=== PATIENT | male | born 1935 | race Caucasian/White ===

== ENCOUNTER 2024-05-25 13:05 | Inpatient (IN) | payer MEDICARE, BC ==
[~2024-05-25] VITALS: Ht 182.9 cm; Wt 86.4 kg
[2024-05-25 14:23] LABS: BASOPHILS # (AUTO) 0.1 X10'3 (0-0.2); BASOPHILS % (AUTO) 0.5 % (0-1); EOSINOPHILS # (AUTO) 0.1 X10'3 (0-0.9); EOSINOPHILS % (AUTO) 0.6 % (0-6); HEMATOCRIT 50.4 % (42.0-52.0); HEMOGLOBIN 16.2 g/dl (14.0-17.9); LYMPHOCYTES # (AUTO) 2.3 X10'3 (1.1-4.8); LYMPHOCYTES % (AUTO) 15.1 % (21-51); MEAN CORPUSCULAR HEMOGLOBIN 31.6 PG (27.0-31.0); MEAN CORPUSCULAR HGB CONC 32.1 g/dL (33.0-36.5); MEAN CORPUSCULAR VOLUME 98.5 FL (78-98); MEAN PLATELET VOLUME 9.8 FL (7.4-10.4); MONOCYTES # (AUTO) 1.3 X10'3 (0-0.9); MONOCYTES % (AUTO) 8.4 % (2-12); NEUTROPHILS # (AUTO) 11.5 X10'3 (1.8-7.7); NEUTROPHILS % (AUTO) 75.4 % (42-75); PLATELET COUNT 191 X10'3 (140-440); RED BLOOD COUNT 5.11 X10'6 (4.70-6.10); RED CELL DISTRIBUTION WIDTH 13.8 % (11.5-14.5); WHITE BLOOD COUNT 15.3 X10'3 (4.5-11.0)
[2024-05-25 14:36] LABS: ALANINE AMINOTRANSFERASE 19 U/L (12-78); ALBUMIN 3.3 G/DL (3.4-5.0); ALBUMIN/GLOBULIN RATIO 0.7 (1.1-1.5); ALKALINE PHOSPHATASE 91 IU/L (46-116); ANION GAP 10 (8-16); ASPARTATE AMINO TRANSFERASE 17 U/L (10-37); BILIRUBIN,TOTAL 2.2 MG/DL (0.1-1.0); BLOOD UREA NITROGEN 17 MG/DL (7-18); CALCIUM 9.3 MG/DL (8.5-10.1); CHLORIDE 111 MMOL/L (99-107); CREATININE 0.85 MG/DL (0.60-1.10); GLUCOSE 105 MG/DL (70-104); POTASSIUM 4.1 MMOL/L (3.5-5.1); SODIUM 147 MMOL/L (135-145); TOTAL CARBON DIOXIDE 26.1 MMOL/L (24-32); eCRCL 65 ML/MIN; eGFR 85 ML/MIN
[2024-05-25] MEDS: normal saline 1000ML IV soln IVB ONE (14:40)
[2024-05-25 14:44] LABS: PRO BRAIN NATRIURETIC PEPTIDE 856 PG/ML (0-450)
[2024-05-25] MEDS ORDERED: RIVA10TA PO (17:44)
[2024-05-25] MEDS ORDERED: CHOL50004 PO (17:44)
[2024-05-25] MEDS ORDERED: VITA1TAB97 PO (17:44)
[2024-05-25] MEDS ORDERED: DUTA0.5C36 PO (17:44)
[2024-05-25] MEDS ORDERED: DILT90TA22 PO (17:44)
[2024-05-25] MEDS ORDERED: FLO0.4C PO (17:44)
[2024-05-25] MEDS ORDERED: QUET50TA24 PO (17:44)
[2024-05-25] MEDS ORDERED: LORA-268 PO (17:44)
[2024-05-25] MEDS ORDERED: SERT-432 PO (17:44)
[2024-05-25] MEDS ORDERED: FLO0.4C (17:44)
[2024-05-25] MEDS ORDERED: MECO10005 PO (17:44)
[2024-05-25 18:20] LABS: BILIRUBIN,URINE SMALL (Neg); CLARITY,URINE CLEAR (Clear); COLOR,URINE AMBER (Yellow); GLUCOSE, URINE NEGATIVE (Neg); KETONES,URINE NEGATIVE (Neg); LEUKOCYTE ESTERASE ,URINE NEGATIVE (Neg); NITRITES, URINE NEGATIVE (Neg); OCCULT BLOOD,URINE MODERATE (Neg); PROTEIN,URINE TRACE mg/dl (Neg)
[2024-05-25 18:23] LABS: UA COLLECTION TYPE STRAIGHT CATH
[2024-05-25 18:28] LABS: BACTERIA,URINE FEW /HPF (Neg); SQUAMOUS EPITHELIAL CELL,UR FEW /LPF (FEW)
[2024-05-25 18:29] LABS: RBC,URINE 20-50 /HPF (0-2); WBC,URINE 0-4 /HPF (0-4)
[2024-05-25 19:41] LABS: MAGNESIUM 2.4 MG/DL (1.5-2.4)
[2024-05-25] MEDS ORDERED: potassium Cl 40MEQ/1/2NS 520ml 520 ML IV PRN (20:20)
[2024-05-25] MEDS ORDERED: magnesium hydroxide 30ml (MOM) UD suspension PO PRN (20:20)
[2024-05-25] MEDS ORDERED: magnesium sulf-water 4G/100mL 100 ML IV PRN (20:20)
[2024-05-25] MEDS ORDERED: ondansetron/PF 4mg/2ml inj IV PRN (20:20)
[2024-05-25] MEDS ORDERED: acetaminophen 325mg tablet PO PRN (20:20)
[2024-05-25] MEDS ORDERED: mag hydrox/Alum hydrox/simeth 30ml oral suspension PO PRN (20:20)
[2024-05-25] MEDS: normal saline 1000ml 1,000 ML IV SCH (20:20)
[2024-05-25] MEDS ORDERED: magnesium Cl slow-release 64mg tablet PO PRN (20:20)
[2024-05-25] MEDS ORDERED: potassium Cl 20 mEq SR tablet PO PRN ×2 (20:20)
[2024-05-25] MEDS ORDERED: magnesium sulf-water 2g/50mL 50 ML IV PRN (20:20)
[2024-05-26] VITALS (9 sets, daily range): BP systolic 87–138; BP diastolic 52–88; PULSE 75–122; RESP 18–22; TEMP 96.6–97.5; O2SAT 94–97
[2024-05-26] MEDS: piperacillin/tazo 3.375gm/50ml 50 ML IV SCH (00:32)
[2024-05-26] MEDS: enoxaparin 40mg/0.4ml syringe SQ ONE (01:28)
[2024-05-26] MEDS: enoxaparin 30mg/0.3ml syringe SUBCUT ONE (01:28)
[2024-05-26] MEDS ORDERED: PERFLUTREN PROTEIN-A MICROSPHR (Optison) 0.22 MG/ML 3ML VIAL IV PRN (02:20)
[2024-05-26 05:46] LABS: BASOPHILS # (AUTO) 0.1 X10'3 (0-0.2); BASOPHILS % (AUTO) 0.6 % (0-1); EOSINOPHILS # (AUTO) 0.1 X10'3 (0-0.9); EOSINOPHILS % (AUTO) 0.8 % (0-6); HEMATOCRIT 43.7 % (42.0-52.0); HEMOGLOBIN 14.4 g/dl (14.0-17.9); LYMPHOCYTES # (AUTO) 2.1 X10'3 (1.1-4.8); LYMPHOCYTES % (AUTO) 18.2 % (21-51); MEAN CORPUSCULAR HEMOGLOBIN 31.9 PG (27.0-31.0); MEAN CORPUSCULAR HGB CONC 32.9 g/dL (33.0-36.5); MEAN CORPUSCULAR VOLUME 96.9 FL (78-98); MEAN PLATELET VOLUME 10.6 FL (7.4-10.4); MONOCYTES # (AUTO) 0.8 X10'3 (0-0.9); MONOCYTES % (AUTO) 7.2 % (2-12); NEUTROPHILS # (AUTO) 8.3 X10'3 (1.8-7.7); NEUTROPHILS % (AUTO) 73.2 % (42-75); PLATELET COUNT 169 X10'3 (140-440); RED BLOOD COUNT 4.51 X10'6 (4.70-6.10); RED CELL DISTRIBUTION WIDTH 13.5 % (11.5-14.5); WHITE BLOOD COUNT 11.4 X10'3 (4.5-11.0)
[2024-05-26 05:54] LABS: ALANINE AMINOTRANSFERASE 19 U/L (12-78); ALBUMIN 2.5 G/DL (3.4-5.0); ALBUMIN/GLOBULIN RATIO 0.7 (1.1-1.5); ALKALINE PHOSPHATASE 69 IU/L (46-116); ANION GAP 9 (8-16); ASPARTATE AMINO TRANSFERASE 19 U/L (10-37); BLOOD UREA NITROGEN 16 MG/DL (7-18); BUN/CREATININE RATIO 24.2 (10.0-20.0); CALCIUM 8.5 MG/DL (8.5-10.1); CHLORIDE 113 MMOL/L (99-107); CREATININE 0.66 MG/DL (0.60-1.10); GLUCOSE 100 MG/DL (70-104); MAGNESIUM 2.3 MG/DL (1.5-2.4); PHOSPHORUS 2.9 MG/DL (2.3-4.5); POTASSIUM 3.8 MMOL/L (3.5-5.1); SODIUM 147 MMOL/L (135-145); TOTAL CARBON DIOXIDE 25.3 MMOL/L (24-32); TOTAL PROTEIN 6.2 G/DL (6.4-8.2); eCRCL 83 ML/MIN; eGFR > 90 ML/MIN
[2024-05-26 06:17] LABS: PLATELET ESTIMATE NORMAL
[2024-05-26 06:19] LABS: LARGE PLATELETS FEW
[2024-05-26] MEDS: CefTRIAXone/D5W-Rocephin 1gm 50 ML IV SCH (07:50)
[2024-05-26] MEDS: K and/or MAG REPLACEMENT MC SCH (08:00)
[2024-05-26] MEDS: ringers solution, lacted 1,000 ML IV ONE (08:10)
[2024-05-26] MEDS ORDERED: dexamethasone 4mg/ml inj IM SCH (11:25)
[2024-05-26] MEDS ORDERED: enoxaparin 40mg/0.4ml syringe SQ SCH (12:00)
[2024-05-26] MEDS ORDERED: enoxaparin 30mg/0.3ml syringe SUBCUT SCH (12:00)
[2024-05-26] MEDS: dextrose 5%-1/2 normal saline 1,000 ML IV SCH (12:46)
[2024-05-26] MEDS: azithromycin/NS 500mg/250ml 250 ML IV SCH (13:21)
[2024-05-26] MEDS: enoxaparin 30mg/0.3ml syringe SUBCUT SCH (13:47)
[2024-05-26] MEDS: enoxaparin 40mg/0.4ml syringe SUBCUT SCH (13:48)
[2024-05-26] MEDS: dexamethasone 4mg/ml inj IV SCH (16:41)
[2024-05-26] MEDS: diltiazem 30mg tablet PO SCH (20:00)
[2024-05-26] MEDS: QUEtiapine 25mg tablet PO SCH (21:00)
[2024-05-26] MEDS: metoprolol tartrate 1mg/ml inj IV SCH (22:33)
[2024-05-27] VITALS (7 sets, daily range): BP systolic 97–110; BP diastolic 55–69; PULSE 83–101; RESP 16–22; TEMP 96.8–98.2; O2SAT 68–96
[2024-05-27 05:59] LABS: BASOPHILS % (AUTO) 0.2 % (0-1); EOSINOPHILS % (AUTO) 0 % (0-6); HEMATOCRIT 45.2 % (42.0-52.0); HEMOGLOBIN 14.7 g/dl (14.0-17.9); LYMPHOCYTES # (AUTO) 1.1 X10'3 (1.1-4.8); LYMPHOCYTES % (AUTO) 13.7 % (21-51); MEAN CORPUSCULAR HGB CONC 32.5 g/dL (33.0-36.5); MEAN CORPUSCULAR VOLUME 98.3 FL (78-98); MONOCYTES # (AUTO) 0.1 X10'3 (0-0.9); MONOCYTES % (AUTO) 1.4 % (2-12); NEUTROPHILS # (AUTO) 6.9 X10'3 (1.8-7.7); NEUTROPHILS % (AUTO) 84.7 % (42-75); PLATELET COUNT 209 X10'3 (140-440); WHITE BLOOD COUNT 8.1 X10'3 (4.5-11.0)
[2024-05-27 06:20] LABS: ALANINE AMINOTRANSFERASE 20 U/L (12-78); ALBUMIN 2.2 G/DL (3.4-5.0); ALBUMIN/GLOBULIN RATIO 0.6 (1.1-1.5); ALKALINE PHOSPHATASE 67 IU/L (46-116); ANION GAP 11 (8-16); ASPARTATE AMINO TRANSFERASE 20 U/L (10-37); BILIRUBIN,TOTAL 1.1 MG/DL (0.1-1.0); BLOOD UREA NITROGEN 17 MG/DL (7-18); BUN/CREATININE RATIO 24.3 (10.0-20.0); CALCIUM 8.3 MG/DL (8.5-10.1); CHLORIDE 112 MMOL/L (99-107); GLUCOSE 206 MG/DL (70-104); MAGNESIUM 2.4 MG/DL (1.5-2.4); PHOSPHORUS 2.8 MG/DL (2.3-4.5); POTASSIUM 4.1 MMOL/L (3.5-5.1); SODIUM 141 MMOL/L (135-145); TOTAL CARBON DIOXIDE 18.5 MMOL/L (24-32); TOTAL PROTEIN 6.2 G/DL (6.4-8.2); eCRCL 79 ML/MIN; eGFR > 90 ML/MIN
[2024-05-27] MEDS ORDERED: MECOBALAMIN 1000 MCG PO SCH (08:00)
[2024-05-27] MEDS: tamsulosin 0.4mg capsule PO SCH (08:00)
[2024-05-27] MEDS ORDERED: [UNRECOGNIZED DRUG - OTHER] PO SCH (08:00)
[2024-05-27] MEDS: rivaroxaban 10mg tablet PO SCH (08:00)
[2024-05-27] MEDS: cholecalciferol (vitamin D3) 1,000 unit (25mcg) tablet PO SCH (08:00)
[2024-05-27] MEDS ORDERED: VITAMIN D3 PO SCH (08:00)
[2024-05-27] MEDS: sertraline 25mg tablet PO SCH (08:00)
[2024-05-27] MEDS: dexamethasone 4mg/ml inj IV SCH (08:30)
[2024-05-27] MEDS: normal saline 1000ml 1,000 ML IV SCH (15:31)
[2024-05-28 02:00] VITALS: BP 100/62; PULSE 89; RESP 15; TEMP 97.2; O2SAT 96
[2024-05-28 06:34] LABS: BASOPHILS % (AUTO) 0.1 % (0-1); EOSINOPHILS % (AUTO) 0 % (0-6); HEMATOCRIT 41.5 % (42.0-52.0); HEMOGLOBIN 13.6 g/dl (14.0-17.9); LYMPHOCYTES # (AUTO) 1.3 X10'3 (1.1-4.8); LYMPHOCYTES % (AUTO) 6.9 % (21-51); MEAN CORPUSCULAR HEMOGLOBIN 31.9 PG (27.0-31.0); MEAN CORPUSCULAR HGB CONC 32.7 g/dL (33.0-36.5); MEAN CORPUSCULAR VOLUME 97.5 FL (78-98); MONOCYTES # (AUTO) 0.2 X10'3 (0-0.9); MONOCYTES % (AUTO) 1.1 % (2-12); NEUTROPHILS # (AUTO) 17.4 X10'3 (1.8-7.7); NEUTROPHILS % (AUTO) 91.9 % (42-75); PLATELET COUNT 215 X10'3 (140-440); RED BLOOD COUNT 4.25 X10'6 (4.70-6.10); RED CELL DISTRIBUTION WIDTH 13.3 % (11.5-14.5); WHITE BLOOD COUNT 18.9 X10'3 (4.5-11.0)
[2024-05-28 06:38] LABS: ALANINE AMINOTRANSFERASE 26 U/L (12-78); ALBUMIN 2.3 G/DL (3.4-5.0); ALBUMIN/GLOBULIN RATIO 0.7 (1.1-1.5); ALKALINE PHOSPHATASE 62 IU/L (46-116); ANION GAP 9 (8-16); ASPARTATE AMINO TRANSFERASE 15 U/L (10-37); BILIRUBIN,TOTAL 0.5 MG/DL (0.1-1.0); BLOOD UREA NITROGEN 23 MG/DL (7-18); BUN/CREATININE RATIO 28.4 (10.0-20.0); CALCIUM 8.4 MG/DL (8.5-10.1); CHLORIDE 114 MMOL/L (99-107); CREATININE 0.81 MG/DL (0.60-1.10); GLUCOSE 147 MG/DL (70-104); MAGNESIUM 2.2 MG/DL (1.5-2.4); PHOSPHORUS 2.7 MG/DL (2.3-4.5); POTASSIUM 3.7 MMOL/L (3.5-5.1); SODIUM 146 MMOL/L (135-145); TOTAL CARBON DIOXIDE 23.4 MMOL/L (24-32); TOTAL PROTEIN 5.8 G/DL (6.4-8.2); eCRCL 68 ML/MIN; eGFR 90 ML/MIN
[2024-05-28 07:00] VITALS: BP 105/69; PULSE 95; RESP 16; TEMP 97; O2SAT 96
[2024-05-28] MEDS: dexamethasone 4mg/ml inj IV SCH (09:27)
[2024-05-28] MEDS ORDERED: CEFD300C3 PO ×3 (11:41→17:03)
[2024-05-28] MEDS ORDERED: PRED10TA23 PO ×3 (11:41→17:03)
[2024-05-28 15:00] VITALS: BP 109/64; PULSE 74; RESP 17; TEMP 97; O2SAT 95
[2024-05-28] MEDS ORDERED: PRED5TAB PO (16:52)
[2024-06-02] MEDS ORDERED: DOCU100C40 PO (03:21)
[2024-06-02] MEDS ORDERED: Ginkgo Biloba PO (03:21)
[2024-06-02] MEDS ORDERED: DILT60TA35 PO (03:21)
[2024-06-02] MEDS ORDERED: POLY17PO10 PO (03:21)
[2024-06-02] MEDS ORDERED: CYAN-34 PO (03:21)
[2024-06-02] MEDS ORDERED: ACET-1008 PO (03:26)
[2024-06-02] MEDS ORDERED: PRED10TA23 PO (12:50)
[2024-06-02] MEDS ORDERED: ALBU90AE INH (12:50)
[2024-06-04] MEDS ORDERED: CIPR-202 PO (12:18)
== END 2024-05-28 16:00 | disposition home or self-care (01) | DRG 867 ==
LOC: ER 13:06 → ED HOLD 20:26 → PCU 3S 05-26 02:00
PROVIDERS: ADMIT Internal Medicine Critical Care Medicine; ATTEND Family Medicine
DX: A49.9 Bacterial infection, unspecified (principal); G93.41 Metabolic encephalopathy; E87.20 Acidosis, unspecified; N40.1 Benign prostatic hyperplasia with lower urinary tract symptoms; R65.10 Systemic inflammatory response syndrome (SIRS) of non-infectious origin without acute organ dysfunction; Z20.822 Contact with and (suspected) exposure to COVID-19; Z66 Do not resuscitate; F03.90 Unspecified dementia, unspecified severity, without behavioral disturbance, psychotic disturbance, mood disturbance, and anxiety; I48.91 Unspecified atrial fibrillation; R33.8 Other retention of urine; Z79.01 Long term (current) use of anticoagulants; Z79.899 Other long term (current) drug therapy; U09.9 Post COVID-19 condition, unspecified
CPT/HCPCS: 36415; 70450; 70551; 71045; 80053; 81001; 83605; 83735; 83880; 84100; 84145; 84484; 85008; 85025; 87040; 87081; 87811; 92508; 92616; 93005; 93306; 96360; 96361; 99285; A4338; A4340; A4358; A5200; A6212; A6213; A6449; A6590; C1758; G0378; J0456; J0696; J1100; J1650; J2543; J3490; J7030

== ENCOUNTER 2024-08-11 12:27 | Inpatient (IN) | payer MEDICARE, BC ==
[~2024-08-11] VITALS: Ht 188 cm; Wt 81.0 kg
[~2024-08-11 12:27] MED LIST: ACET-1008 PO; ALBU90AE INH; CHOL50004 PO; CYAN-34 PO; DILT60TA35 PO; DOCU100C40 PO; DUTA0.5C36 PO; FLO0.4C; Ginkgo Biloba PO; LORA-268 PO; MECO10005 PO; POLY17PO10 PO; QUET50TA24 PO; SERT-432 PO; VITA1TAB97 PO
[2024-08-11] MEDS ORDERED: iohexol 350MG/ML 100ml bottle IV ONE (12:39)
[2024-08-11 12:48] LABS: BASOPHILS # (AUTO) 0.1 X10'3 (0-0.2); BASOPHILS % (AUTO) 0.6 % (0-1); EOSINOPHILS # (AUTO) 0.2 X10'3 (0-0.9); EOSINOPHILS % (AUTO) 1.9 % (0-6); HEMATOCRIT 45.4 % (42.0-52.0); HEMOGLOBIN 15.3 g/dl (14.0-17.9); LYMPHOCYTES # (AUTO) 2.9 X10'3 (1.1-4.8); LYMPHOCYTES % (AUTO) 29.3 % (21-51); MEAN CORPUSCULAR HEMOGLOBIN 32.9 PG (27.0-31.0); MEAN CORPUSCULAR HGB CONC 33.8 g/dL (33.0-36.5); MEAN CORPUSCULAR VOLUME 97.4 FL (78-98); MEAN PLATELET VOLUME 9.3 FL (7.4-10.4); MONOCYTES # (AUTO) 0.7 X10'3 (0-0.9); MONOCYTES % (AUTO) 6.9 % (2-12); NEUTROPHILS % (AUTO) 61.3 % (42-75); PLATELET COUNT 195 X10'3 (140-440); RED BLOOD COUNT 4.66 X10'6 (4.70-6.10); RED CELL DISTRIBUTION WIDTH 15.4 % (11.5-14.5); WHITE BLOOD COUNT 9.8 X10'3 (4.5-11.0)
[2024-08-11 13:35] LABS: ANION GAP 7 (8-16); BLOOD UREA NITROGEN 22 MG/DL (7-18); BUN/CREATININE RATIO 27.8 (10.0-20.0); CALCIUM 8.2 MG/DL (8.5-10.1); CHLORIDE 107 MMOL/L (99-107); CREATININE 0.79 MG/DL (0.60-1.10); GLUCOSE 111 MG/DL (70-104); POTASSIUM 3.8 MMOL/L (3.5-5.1); SODIUM 143 MMOL/L (135-145); TOTAL CARBON DIOXIDE 29.2 MMOL/L (24-32); eCRCL 75 ML/MIN; eGFR > 90 ML/MIN
[2024-08-11 13:37] LABS: APTT 35 SECONDS (22-32); INR 1.3 INR; PROTHROMBIN TIME 13.5 SECONDS (9.0-12.0)
[2024-08-11] MEDS ORDERED: magnesium Cl slow-release 64mg tablet PO PRN (14:10)
[2024-08-11] MEDS ORDERED: potassium Cl 40MEQ/1/2NS 520ml 520 ML IV PRN (14:10)
[2024-08-11] MEDS ORDERED: magnesium hydroxide 30ml (MOM) UD suspension PO PRN (14:10)
[2024-08-11] MEDS ORDERED: HYDROcodone/acetaminophen 5mg/325mg tablet PO PRN (14:10)
[2024-08-11] MEDS ORDERED: HYDROcodone/acetaminophen 10/325mg tab PO PRN (14:10)
[2024-08-11] MEDS ORDERED: potassium Cl 20 mEq SR tablet PO PRN ×2 (14:10)
[2024-08-11] MEDS ORDERED: ondansetron/PF 4mg/2ml inj IV PRN (14:10)
[2024-08-11] MEDS ORDERED: morphine 2 MG/ML inj. syringe IV PRN ×2 (14:10)
[2024-08-11] MEDS ORDERED: acetaminophen 325mg tablet PO PRN ×2 (14:10)
[2024-08-11] MEDS ORDERED: mag hydrox/Alum hydrox/simeth 30ml oral suspension PO PRN (14:10)
[2024-08-11] MEDS ORDERED: magnesium sulf-water 4G/100mL 100 ML IV PRN (14:10)
[2024-08-11] MEDS ORDERED: magnesium sulf-water 2g/50mL 50 ML IV PRN (14:10)
[2024-08-11] MEDS ORDERED: atorvastatin 20mg tablet PO SCH (14:15)
[2024-08-11] MEDS ORDERED: apixaban 5mg tablet PO SCH (14:20)
[2024-08-11] MEDS: PERFLUTREN PROTEIN-A MICROSPHR (Optison) 0.22 MG/ML 3ML VIAL IV ONE (14:20)
[2024-08-11] MEDS: aspirin 81mg, enteric-coated 1 TAB TABLET.DR PO ONE (15:19)
[2024-08-11] MEDS: apixaban 5mg tablet PO ONE (15:19)
[2024-08-11] MEDS: diltiazem 30mg tablet PO SCH (18:55)
[2024-08-11] MEDS: K and/or MAG REPLACEMENT MC SCH (19:40)
[2024-08-11] MEDS: apixaban 5mg tablet PO SCH (20:44)
[2024-08-11] MEDS: docusate sod 100mg capsule PO SCH (20:44)
[2024-08-11] MEDS: atorvastatin 20mg tablet PO SCH (20:47)
[2024-08-12 00:12] LABS: BILIRUBIN,URINE NEGATIVE (Neg); CLARITY,URINE CLEAR (Clear); COLOR,URINE YELLOW (Yellow); GLUCOSE, URINE NEGATIVE (Neg); KETONES,URINE NEGATIVE (Neg); LEUKOCYTE ESTERASE ,URINE NEGATIVE (Neg); NITRITES, URINE NEGATIVE (Neg); OCCULT BLOOD,URINE NEGATIVE (Neg); PROTEIN,URINE NEGATIVE (Neg)
[2024-08-12 00:19] LABS: UA COLLECTION TYPE CLN CATCH MIDSTREAM
[2024-08-12 03:28] LABS: BASOPHILS # (AUTO) 0.1 X10'3 (0-0.2); BASOPHILS % (AUTO) 0.6 % (0-1); EOSINOPHILS # (AUTO) 0.2 X10'3 (0-0.9); EOSINOPHILS % (AUTO) 2.1 % (0-6); HEMATOCRIT 41.8 % (42.0-52.0); HEMOGLOBIN 14.2 g/dl (14.0-17.9); LYMPHOCYTES # (AUTO) 3.2 X10'3 (1.1-4.8); LYMPHOCYTES % (AUTO) 35.1 % (21-51); MEAN CORPUSCULAR HEMOGLOBIN 32.9 PG (27.0-31.0); MEAN CORPUSCULAR HGB CONC 33.9 g/dL (33.0-36.5); MONOCYTES # (AUTO) 0.7 X10'3 (0-0.9); MONOCYTES % (AUTO) 7.7 % (2-12); NEUTROPHILS % (AUTO) 54.5 % (42-75); PLATELET COUNT 161 X10'3 (140-440); RED BLOOD COUNT 4.31 X10'6 (4.70-6.10); RED CELL DISTRIBUTION WIDTH 15.3 % (11.5-14.5); WHITE BLOOD COUNT 9.2 X10'3 (4.5-11.0)
[2024-08-12 04:12] LABS: ALANINE AMINOTRANSFERASE 16 U/L (12-78); ALKALINE PHOSPHATASE 78 IU/L (46-116); ANION GAP 7 (8-16); ASPARTATE AMINO TRANSFERASE 17 U/L (10-37); BILIRUBIN,TOTAL 1.4 MG/DL (0.1-1.0); BLOOD UREA NITROGEN 19 MG/DL (7-18); BUN/CREATININE RATIO 29.2 (10.0-20.0); CALCIUM 8.5 MG/DL (8.5-10.1); CHLORIDE 108 MMOL/L (99-107); CHOL/HDL RATIO 4.2 (0.00-4.99); CHOLESTEROL 126 MG/DL (0-200); CREATININE 0.65 MG/DL (0.60-1.10); GLUCOSE 101 MG/DL (70-104); HDL CHOLESTEROL 30 MG/DL (35-60); LDL CHOLESTEROL 83 MG/DL (50-100); MAGNESIUM 2.1 MG/DL (1.5-2.4); POTASSIUM 3.8 MMOL/L (3.5-5.1); SODIUM 143 MMOL/L (135-145); TOTAL CARBON DIOXIDE 27.7 MMOL/L (24-32); TOTAL PROTEIN 6.1 G/DL (6.4-8.2); TRIGLYCERIDES 109 MG/DL (20-135); eCRCL 92 ML/MIN; eGFR > 90 ML/MIN
[2024-08-12 04:23] LABS: HEMOGLOBIN A1C 5.1 % (4.5-6.2)
[2024-08-12] MEDS ORDERED: aspirin 81mg, enteric-coated 1 TAB TABLET.DR PO SCH (08:00)
[2024-08-12] MEDS: aspirin 81mg, enteric-coated 1 TAB TABLET.DR PO SCH (08:00)
[2024-08-12] MEDS: rivaroxaban 15mg tablet PO SCH (16:00)
[2024-08-12 18:18] VITALS: BP 118/71; PULSE 98; RESP 18; TEMP 97.6; O2SAT 95
[2024-08-12 20:00] VITALS: RESP 16; O2SAT 94
[2024-08-12 22:00] VITALS: BP 137/73; PULSE 93; RESP 15; TEMP 97.9; O2SAT 94
[2024-08-13 02:00] VITALS: BP 129/74; PULSE 103; RESP 14; TEMP 97.8; O2SAT 93
[2024-08-13 06:41] LABS: BASOPHILS # (AUTO) 0.1 X10'3 (0-0.2); BASOPHILS % (AUTO) 0.6 % (0-1); EOSINOPHILS # (AUTO) 0.2 X10'3 (0-0.9); EOSINOPHILS % (AUTO) 2.2 % (0-6); HEMATOCRIT 43.5 % (42.0-52.0); HEMOGLOBIN 14.6 g/dl (14.0-17.9); LYMPHOCYTES # (AUTO) 3.2 X10'3 (1.1-4.8); LYMPHOCYTES % (AUTO) 35.6 % (21-51); MEAN CORPUSCULAR HEMOGLOBIN 32.5 PG (27.0-31.0); MEAN CORPUSCULAR HGB CONC 33.6 g/dL (33.0-36.5); MEAN CORPUSCULAR VOLUME 96.9 FL (78-98); MEAN PLATELET VOLUME 9.3 FL (7.4-10.4); MONOCYTES # (AUTO) 0.6 X10'3 (0-0.9); NEUTROPHILS # (AUTO) 4.9 X10'3 (1.8-7.7); NEUTROPHILS % (AUTO) 54.6 % (42-75); PLATELET COUNT 171 X10'3 (140-440); RED BLOOD COUNT 4.48 X10'6 (4.70-6.10); RED CELL DISTRIBUTION WIDTH 14.8 % (11.5-14.5); WHITE BLOOD COUNT 8.9 X10'3 (4.5-11.0)
[2024-08-13 07:13] LABS: ALANINE AMINOTRANSFERASE 16 U/L (12-78); ALKALINE PHOSPHATASE 78 IU/L (46-116); ANION GAP 6 (8-16); ASPARTATE AMINO TRANSFERASE 18 U/L (10-37); BILIRUBIN,TOTAL 1.4 MG/DL (0.1-1.0); BLOOD UREA NITROGEN 17 MG/DL (7-18); BUN/CREATININE RATIO 21.3 (10.0-20.0); CALCIUM 8.8 MG/DL (8.5-10.1); CHLORIDE 106 MMOL/L (99-107); GLUCOSE 103 MG/DL (70-104); MAGNESIUM 2.1 MG/DL (1.5-2.4); SODIUM 143 MMOL/L (135-145); TOTAL CARBON DIOXIDE 30.7 MMOL/L (24-32); TOTAL PROTEIN 6.1 G/DL (6.4-8.2); eCRCL 75 ML/MIN; eGFR > 90 ML/MIN
[2024-08-13 07:45] VITALS: BP 118/91; PULSE 95; RESP 18; TEMP 98; O2SAT 91
[2024-08-13 07:53] LABS: POTASSIUM 3.9 MMOL/L (3.5-5.1)
[2024-08-13 08:25] VITALS: RESP 18; O2SAT 91
[2024-08-13] MEDS: dutasteride 0.5 MG capsule PO SCH (08:25)
[2024-08-13] MEDS: aspirin 81mg tab.chew PO SCH (08:25)
[2024-08-13 10:00] VITALS: BP 101/72; PULSE 100; RESP 14; TEMP 97.4; O2SAT 94
[2024-08-13] MEDS ORDERED: APIX5TAB3 PO (14:18)
[2024-08-13] MEDS ORDERED: ASPI81TA52 PO (14:18)
== END 2024-08-13 17:36 | disposition home health service (06) | DRG 309 ==
LOC: ER 12:27 → ED HOLD 14:11 → ORTHO 4S 08-12 17:09
PROVIDERS: ADMIT Nurse Practitioner Family; ATTEND Nurse Practitioner Family
PROC: B3251ZZ Computerized Tomography (CT Scan) of Bilateral Common Carotid Arteries using Low Osmolar Contrast (ICD-10-PCS; principal; 2024-08-11)
PROC: B32G1ZZ Computerized Tomography (CT Scan) of Bilateral Vertebral Arteries using Low Osmolar Contrast (ICD-10-PCS; 2024-08-11)
PROC: B32R1ZZ Computerized Tomography (CT Scan) of Intracranial Arteries using Low Osmolar Contrast (ICD-10-PCS; 2024-08-11)
PROC: B3281ZZ Computerized Tomography (CT Scan) of Bilateral Internal Carotid Arteries using Low Osmolar Contrast (ICD-10-PCS; 2024-08-11)
DX: I48.91 Unspecified atrial fibrillation (principal); R47.01 Aphasia; Z66 Do not resuscitate; I10 Essential (primary) hypertension; F03.90 Unspecified dementia, unspecified severity, without behavioral disturbance, psychotic disturbance, mood disturbance, and anxiety; Z79.01 Long term (current) use of anticoagulants; N40.1 Benign prostatic hyperplasia with lower urinary tract symptoms
CPT/HCPCS: 36415; 70450; 70496; 70498; 70551; 71045; 80048; 80053; 80061; 81003; 83036; 83735; 85025; 85610; 85730; 86885; 86900; 86901; 87081; 92508; 92616; 93005; 97110; 97162; 99285; A6446; A6449; A6590; C1758; G0378; J7030; Q9967